=== PATIENT | female | born 1985 | race Caucasian/White ===

== ENCOUNTER 2018-10-14 11:07 | Emergency (ER) | payer SELFPAY ==
[~2018-10-14] VITALS: Ht 160 cm; Wt 78.9 kg
[2018-10-14 11:13] VITALS: Ht 160 cm; Wt 78.9 kg
[2018-10-14 12:24] VITALS: BP 125/78
== END 2018-10-14 12:24 | disposition home or self-care (01) ==
LOC: ED 11:07
DX: N39.0 Urinary tract infection, site not specified (principal)
CPT/HCPCS: J1885

== ENCOUNTER 2019-05-19 14:10 | Emergency (ER) | payer SELFPAY ==
[~2019-05-19] VITALS: Ht 160 cm; Wt 84.8 kg
[2019-05-19 14:29] VITALS: Ht 160 cm; Wt 84.8 kg
[2019-05-19 15:30] VITALS: BP 120/88
== END 2019-05-19 15:30 | disposition home or self-care (01) ==
LOC: ED 14:10
DX: S39.012A Strain of muscle, fascia and tendon of lower back, initial encounter (principal); X58.XXXA Exposure to other specified factors, initial encounter; Y93.89 Activity, other specified; Y92.89 Other specified places as the place of occurrence of the external cause; Y99.8 Other external cause status
CPT/HCPCS: J1885